=== PATIENT | female | born 1955 | race Caucasian/White ===

== ENCOUNTER 2024-03-21 11:18 | Outpatient (CLI) | payer MEDICARE, OTHER, SELFPAY ==
--- NOTE | 2024-03-21 11:42 | ECG_ITS ---
SEE SCANNED COPY FOR CONFIRMED REPORT MTDD
[2024-03-21 12:25] LABS: Prothrombin Time 13.1 Seconds (11.1-14.7)
[2024-03-21 12:26] LABS: Partial Thromboplastin Time 26.1 Seconds (22.3-36.8)
== END 2024-03-21 11:19 | disposition home or self-care (01) ==
PROVIDERS: Visit Provider Urology
DX: E78.00 Pure hypercholesterolemia, unspecified (principal); N20.0 Calculus of kidney; Z01.818 Encounter for other preprocedural examination
CPT/HCPCS: 36415; 85610; 85730; 87086; 87088; 93005

== ENCOUNTER → 2024-03-29 02:01 | Day surgery (SDC) | payer MEDICARE, OTHER, SELFPAY ==
[2024-03-19 10:37] VITALS: BMI 32.1
--- NOTE | 2024-03-19 10:49 | PC.NURSE ---
PRE-OP INSTRUCTIONS, PLEASE READ CAREFULLY Report to the Outpatient Waiting Room, entrance under the green pavilion located off [facility], at time _0730_ on date _03/29/24_. Planned Procedure Time: _0930_. Time changes happen often and if your time is changed the preop area will call you the afternoon before. - You and your visitor will be asked to self-screen and do not enter if you have any COVID symptoms. - A mask is optional within the hospital at this time. Patients may have clear liquids (water, carbonated beverages, clear teas, apple juice) until 3 hours prior to surgery (0630 AM) with a maximum of 20 ounces. - No food from midnight until time of surgery Take the following medications with a SIP of water the morning of surgery: _BACLOFEN, DALFAMPRIDINE, LEVOTHYROXINE_ DO NOT STOP ANY OF YOUR OTHER PRESCRIPTION MEDICATIONS PRIOR TO SURGERY ?EXCEPT THE FOLLOWING Medications to discontinue - _PT STATES STOPPING ASPIRIN 03/16/24 AND GOING TO STOP VITAMINS/SUPPLEMENTS ON _ Please no make-up, nail serbian, hairspray, perfume, deodorant, or body powder the day of surgery. No jewelry (including any body piercings) or valuables the day of surgery, leave them at home. Please take a shower or bath the night before, or the morning of, surgery with an antibacterial soap. Wear comfortable, loose fitting clothing. - Jewelry must be removed prior to entering the operating room. Rings and piercings that are not removed may be cut off. - The hospital will not accept responsibility for valuables. - Please leave all valuables, including medications, at home the day of surgery. If you are going home after surgery, a licensed transporter driver must drive you home. - NO public transportation without another adult if you receive anesthesia. - We recommend that an adult stay with you for 24 hours following discharge. - We also recommend that you do not drive, make important decision, drink alcoholic beverages, or take any drugs that were not prescribed by your health care provider for at least 24 hours after your discharge time. For Pediatric surgeries, we recommend two adults accompany the child home. Follow any additional instructions given to you from your surgeon. If you or anyone in your household have experienced Covid symptoms in the past week, please notify your surgeon or the nurse liaison at the phone number below for possible testing. Telephone instructions given to _PATIENT_and asked if any additional questions and then verbalized understanding. Patient advised to call surgeon office or pre surgery nurse liaison [phone] if any additional questions.
--- NOTE | 2024-03-28 07:36 | PM.HPGS ---
History of Present Illness History of Present Illness Consent: Risks, benefits, and alternatives have been discussed and questions answered. Patient agrees to proceed with procedure. Chief complaint: Right Renal Stone Narrative: Evette Cronin is a 68 year old female without known history of urolithiasis who was undergoing evaluation for recurrent urinary tract infection when a CT scan at [facility] demonstrated a 1.5 cm right renal pelvic stone. On KUB this is lightly calcified. After discussion of options she has elected for cystoscopy with right ureteral stent placement with right ESWL. She is aware the risk including, but not limited to, adverse cardiopulmonary events, hematuria, perinephric hematoma and need for additional procedures. Review of Systems Cardiovascular: Cardiovascular: Denies chest pain, Denies lightheadedness, Denies palpitations and Denies dyspnea Respiratory: Respiratory: Denies dyspnea Gastrointestinal: Gastrointestinal: Denies diarrhea, Denies nausea and Denies vomiting Genitourinary: Genitourinary: Denies hematuria and Denies dysuria Endocrine: Endocrine: Denies palpitations PMFSH Social History Social History Smoking status: Former smoker Tobacco type: cigarettes Second hand tobacco smoke exposure: No Smoking end date: 11/27/84 Additional smoking assessment comments: STATES SMOKED ON/OFF FOR 15 YRS Alcohol intake: never Substance use: never Substance use type: does not use Living arrangements: with family Additional living arrangements comments: PT SON & FAMILY LIVES WITH PT Spiritual care concerns: No Meds Home Medications and Allergies Home Medications Medication Instructions Recorded Confirmed Type aripiprazole 10 mg tablet 10 mg HS 03/19/24 03/19/24 History aspirin 81 mg tablet,delayed 81 mg PO DAILY 03/19/24 03/19/24 History release baclofen 10 mg tablet 10 mg QID 03/19/24 03/19/24 History calcium carb-ergocalciferol (vit 2 tablet PO DAILY 03/19/24 03/19/24 History D2) 600 mg calcium-200 unit tablet cholecalciferol (vitamin D3) 25 25 mcg PO TID 03/19/24 03/19/24 History mcg (1,000 unit) tablet citalopram 40 mg tablet 40 mg HS 03/19/24 03/19/24 History cranberry 500 mg capsule 500 mg PO DAILY 03/19/24 03/19/24 History dalfampridine 10 mg 10 mg PO QAM 03/19/24 03/19/24 History tablet,extended release,12 hr gabapentin 300 mg capsule 600 mg HS 03/19/24 03/19/24 History levothyroxine 100 mcg tablet 100 mcg QAM 03/19/24 03/19/24 History multivitamin 1 tablet DAILY 03/19/24 03/19/24 History omega 0-dta-uir-fish oil 1,000 mg 3 cap PO DAILY 03/19/24 03/19/24 History (120 mg-180 mg) capsule (Fish Oil) omeprazole 40 mg capsule,delayed 40 mg DAILY 03/19/24 03/19/24 History release rosuvastatin 10 mg tablet 10 mg QAM 03/19/24 03/19/24 History Allergies Allergy/AdvReac Type Severity Reaction Status Date / Time No Known Allergies Allergy Verified 03/19/24 10:26 Exam Const: General: no acute distress Resp: Effort & Inspection: normal respiratory effort GI: Inspection: non-distended GI Palp: No abdominal tenderness and No Guarding due to palpation present (GI) Auscultation: normal bowel sounds Assessment and Plan Assessment and plan (1) Right renal stone: Code(s): N20.0 - Calculus of kidney Status: Acute Assessment and Plan: cystoscopy, right ureteral stent placement, right ESWL
--- NOTE | ~2024-03-29 | XR_ITS ---
Supine and upright views of the abdomen Clinical history: Lithotripsy Findings: Bowel gas pattern is nonspecific. No evidence for obstruction or free air. There is a proba ble 2.0 x 0.9 cm stone near the right renal pelvis region. 1.2 cm rounded calcification in the left u pper quadrant is suggestive of calcified splenic artery aneurysm. Osseous structures are intact. Impression: 2.0 x 0.9 cm right renal pelvis stone. Suspected 1.2 cm calcified splenic artery aneurysm. Reviewed, dictated and finalized at location M. Impression: 2.0 x 0.9 cm right renal pelvis stone. Suspected 1.2 cm calcified splenic artery aneurysm.
--- NOTE | 2024-03-29 06:18 | WPDHPUPDATE1 ---
History and Physical Update Update Date/Time: 03/29/24 06:18 History and Physical has been reviewed, including an updated exam of the patient. There are NO changes in the patient's condition. Risks, benefits, and alternatives have been discussed and questions answered. Patient agrees to proceed with procedure.
[2024-03-29] MEDS: LACTATED RINGERS 1,000 ML 30 ML IV CONT (08:00)
[2024-03-29 08:08] VITALS: BP 115/49; PULSE 67; RESP 18; TEMP 36.7; O2SAT 100
[2024-03-29] MEDS: ceFAZolin 2 GM/D5W 50 ML 2 GM/50 ML BAG IVPB (09:26)
--- NOTE | 2024-03-29 09:41 | WPDANESEPPF ---
Anes - Initial Pre Proc Eval Procedure: Operation Date: 03/29/24 09:30 Proposed Procedures p Right Extracorporeal Shock Wave Lithotripsy - Juanjose Grubbs MD s Cystoscopy with Right Stent Placement - Juanjose Grubbs MD Date/Time: 03/29/24 09:41 Surgeon: Juanjose Grubbs MD Pre Op Diagnosis: Right Renal Stone Patient Data Age: 68 Gender: F Height: 1.63 m Weight: 84.2 kg Last Vital Signs Temp 36.7 C 03/29/24 08:08 Pulse 67 03/29/24 08:08 Resp 18 03/29/24 08:08 BP 115/49 L 03/29/24 08:08 Pulse Ox 100 03/29/24 08:08 O2 Del Method Room Air 03/29/24 08:08 Allergies Allergy/AdvReac Type Severity Reaction Status Date / Time No Known Allergies Allergy Verified 03/29/24 08:03 Home Medications Medication Instructions Recorded Confirmed Type aripiprazole 10 mg tablet 10 mg HS 03/19/24 03/29/24 History aspirin 81 mg tablet,delayed 81 mg PO DAILY 03/19/24 03/29/24 History release baclofen 10 mg tablet 10 mg QID 03/19/24 03/29/24 History calcium carb-ergocalciferol (vit 2 tablet PO DAILY 03/19/24 03/29/24 History D2) 600 mg calcium-200 unit tablet cholecalciferol (vitamin D3) 25 25 mcg PO TID 03/19/24 03/29/24 History mcg (1,000 unit) tablet citalopram 40 mg tablet 40 mg HS 03/19/24 03/29/24 History cranberry 500 mg capsule 500 mg PO DAILY 03/19/24 03/29/24 History dalfampridine 10 mg 10 mg PO QAM 03/19/24 03/29/24 History tablet,extended release,12 hr gabapentin 300 mg capsule 600 mg HS 03/19/24 03/29/24 History levothyroxine 100 mcg tablet 100 mcg QAM 03/19/24 03/29/24 History multivitamin 1 tablet DAILY 03/19/24 03/29/24 History omega 9-cxm-fbp-fish oil 1,000 mg 3 cap PO DAILY 03/19/24 03/29/24 History (120 mg-180 mg) capsule (Fish Oil) omeprazole 40 mg capsule,delayed 40 mg DAILY 03/19/24 03/29/24 History release rosuvastatin 10 mg tablet 10 mg QAM 03/19/24 03/29/24 History Patient hx anesthesia problems: none Family hx anesthesia problems: none Results Review: All pre-operative results and documents have been reviewed as part of the pre-operative evaluation. PMFSH Past Medical History Medical History (Updated 03/29/24 @ 09:41 by Aydin Dickens MD) Multiple sclerosis Obesity Social History Social History Smoking status: Former smoker Tobacco type: cigarettes Second hand tobacco smoke exposure: No Smoking end date: 11/27/84 Additional smoking assessment comments: STATES SMOKED ON/OFF FOR 15 YRS Alcohol intake: never Substance use: never Substance use type: does not use Living arrangements: with family Additional living arrangements comments: PT SON & FAMILY LIVES WITH PT Spiritual care concerns: No Anes - Eval Final PreProcedure Day of Procedure 03/29/24 09:41 Patient weight: obese Heart: regular rate and rhythm Lungs: clear to auscultation Airway: Mallampati scale class II Neurological: alert and oriented Last oral intake: >/= 8 hours ASA classification: III Emergent: no Anesthetic plan: proceed Anesthesia type and monitoring: general LMA and standard monitoring Results Review: All pre-operative results and documents have been reviewed as part of the pre-operative evaluation. Informed Consent: The patient's anesthetic plan and its attendant risks and benefits were discussed with the patient/family/POA. Questions were solicited and answers provided to the satisfaction of the patient/family/POA.
--- NOTE | 2024-03-29 09:59 | P.OP_ITS ---
Procedure Note - Detailed Date of Procedure 03/29/24 Pre-op Diagnosis Right Renal Stone Post-op Diagnosis Same Procedure Performed Cystoscopy, right ureteral stent placement, right ESWL Surgeon Juanjose Grubbs MD Anesthesia General Description of Procedure The patient was brought to the operative suite where she was placed in the frog- legged position on the Dornier lithotripter table. Flexible cystoscopy was undertaken with a 16F flexible cystoscopy. Her urethra and bladder neck were endoscopically normal. The bladder mucosa was normal and there was a single, orthotopic ureteral orifice bilaterally. A 0.035 glidewire was advanced into the right renal pelvis under fluoroscopy. A 4.8F J-J ureteral stent was positioned with the proximal coil in the renal pelvis and the distal coil in the bladder. The patient was then repositioned in the supine position and the focal point of the lithotriptor was placed at a 15mm left proximal-ureteral calculus. A total of 3000 shocks were delivered at a power setting of 5. There appeared to be good fragmentation of the stone. The patient tolerated the procedure well and was taken to the recovery room in good condition. Drains Yes Packing No Pathology None sent Complications No immediate complications
[2024-03-29 10:28] VITALS: BP 150/82; PULSE 76; RESP 14; TEMP 36.2; O2SAT 100
[2024-03-29 10:40] VITALS: BP 143/67; PULSE 79; RESP 19; O2SAT 100
[2024-03-29 10:55] VITALS: BP 132/68; PULSE 76; RESP 16; O2SAT 100
[2024-03-29 11:10] VITALS: BP 136/68; PULSE 70; RESP 16
[2024-03-29 11:40] VITALS: BP 143/72; PULSE 74; RESP 16
== END | disposition home or self-care (01) ==
PROVIDERS: Visit Provider Urology
PROC: (CPT 50590; principal; 2024-03-29 09:30)
PROC: (CPT 52352; 2024-03-29 09:30)
DX: N20.1 Calculus of ureter (principal); G35 Multiple sclerosis; E66.9 Obesity, unspecified; Z68.31 Body mass index [BMI] 31.0-31.9, adult; Z79.82 Long term (current) use of aspirin; Z87.891 Personal history of nicotine dependence
CPT/HCPCS: 52332; 50590; 36415; 74018; 85610; 85730; 87086; 93005; C1769; C2617; J0690; J1100; J2250; J2405; J2704; J3010; J7120

== ENCOUNTER 2024-04-03 03:06 | Inpatient (IN) | payer MEDICARE, OTHER, SELFPAY ==
[2024-04-03] VITALS (7 sets, daily range): BP systolic 113–128; BP diastolic 41–70; PULSE 84–100; RESP 16–27; TEMP 36.6–37.1; O2SAT 92–97; BMI 31.8
--- NOTE | ~2024-04-03 | XR_ITS ---
Supine and upright views of the abdomen Clinical history: Stent evaluation Findings: Bowel gas pattern is nonspecific. No evidence for obstruction or free air. Right ureteral s tent in satisfactory position. No abnormal mass lesion or calcification is seen. Osseous structures a re intact. Impression: Right ureteral stent in satisfactory position. No definite stone identified. Reviewed, dictated and finalized at [facility]. Impression: Right ureteral stent in satisfactory position. No definite stone identified.
--- NOTE | ~2024-04-03 | US_ITS ---
EXAMINATION: US venous doppler [facility] DATE: 04/05/2024 08:44 INDICATION: Lower limb edema. TECHNIQUE: Grayscale ultrasound images without and with compression and Doppler ultrasound images of the bilateral lower extremity veins were obtained. COMPARISON: None. FINDINGS: The visualized portions of right common femoral vein, profunda (deep) femoral vein, femoral vein, pop liteal vein, peroneal veins, posterior tibial veins, and greater saphenous vein outflow are patent. The visualized portions of left common femoral vein, profunda femoral vein, femoral vein, popliteal v ein, peroneal veins, posterior tibial veins, and greater saphenous vein outflow are patent. IMPRESSION: 1. No deep venous thrombosis. Reviewed, dictated and finalized at location A.
--- NOTE | 2024-04-03 03:25 | ECG_ITS ---
SEE SCANNED COPY FOR CONFIRMED REPORT MTDD
[2024-04-03 04:15] LABS: Basophils Percent Auto 0.1 % (0.2-1.2); Eosinophils Percent Auto 0.2 % (0-4.4); Hematocrit 34.7 % (37.0-47.0); Hemoglobin 11.7 g/dL (12.0-15.0); Immature Granulocyte Absolute 0.03 K/mm3 (0.00-0.031); Immature Granulocyte Percent A 0.3 % (0-0.5); Lymphocytes Absolute Auto 0.96 K/mm3 (0.9-3.2); Lymphocytes Percent Auto 9.6 % (18.3-44.2); Mean Corpuscular HGB Conc 33.7 g/dl (32-36); Mean Corpuscular Hemoglobin 28.9 pg (26-34); Mean Corpuscular Volume 85.7 fl (80-100); Mean Platelet Volume 9.6 fl (7.4-10.4); Monocytes Absolute Auto 0.8 K/mm3 (0.1-0.6); Monocytes Percent Auto 8.1 % (2.6-8.5); Neutrophils Absolute Auto 8.1 K/mm3 (1.3-6.7); Neutrophils Percent Auto 81.7 % (45.5-73.1); Platelet Count Result 130 k/mm3 (150-375); Red Blood Count 4.05 M/mm3 (4.2-5.4)
[2024-04-03 04:19] LABS: Appearance Urine Cloudy (Clear); Bacteria Urine None Seen /hpf; Bilirubin Urine Negative (Negative); Blood Urine 2+ (Negative); Color Urine Yellow (Yellow); Glucose Urine UA Negative (Negative); Ketones Urine 2+ mg/dL (Negative); Leukocyte Esterase Ur 3+ LEU/UL (Negative); Nitrate Urine Negative (Negative); Non Pathogenic Casts 0-2; Protein Urine 1+ mg/dL (Negative); RBC Urine 51-100 /hpf (0-2); Specific Grav Ur 1.027 (1.001-1.035); Squamous Epithelial Cell Urine None Seen /hpf (Few); WBC Urine >100 /hpf (0-3)
[2024-04-03 04:21] LABS: Add Urine Microscopic? YES
[2024-04-03 04:26] LABS: Alanine Aminotransferase 14 U/L (6-35); Albumin Level 3.9 g/dL (3.5-5.1); Alkaline Phosphatase 58 U/L (38-126); Anion Gap 9 mmol/L (4-12); Aspartate Amino Transferase 18 U/L (14-36); Bilirubin,Total 1.4 mg/dL (0.2-1.3); Blood Urea Nitrogen 13 mg/dL (7-17); Calcium 8.4 mg/dL (8.4-10.2); Carbon Dioxide 22 mmol/L (22-30); Chloride 111 mmol/L (98-107); Estimated CRCL calculation 73 ml/min; Estimated Glomerular Filt Rate > 60; Glucose 116 mg/dL (65-110); Lactic Acid Reflex 0.8 mmol/L (0.7-2.0); Potassium 3.4 mmol/L (3.4-5.0); Sodium 142 mmol/L (137-145)
--- NOTE | 2024-04-03 04:38 | ED.GENADULT ---
HPI - General Adult General Chief complaint: Urogenital-Female Stated complaint: INFECTED URETRAL STENT/FROM [facility] ED Time Seen by Provider: 04/03/24 03:10 History of Present Illness HPI narrative: This is a 68-year-old female transferred from [facility] for possible infected stent. Patient been having fevers chills and right flank pain. Patient was Given fluid resuscitated and started on ceftriaxone. She was then transferred to our hospital for further management. At this time patient says she feels much better. She is resting comfortably in bed with no complaints. Related Data Home Medications Medication Instructions Recorded Confirmed aripiprazole 10 mg tablet 10 mg HS 03/19/24 03/29/24 aspirin 81 mg tablet,delayed 81 mg PO DAILY 03/19/24 03/29/24 release baclofen 10 mg tablet 10 mg QID 03/19/24 03/29/24 calcium carb-ergocalciferol (vit 2 tablet PO DAILY 03/19/24 03/29/24 D2) 600 mg calcium-200 unit tablet cholecalciferol (vitamin D3) 25 25 mcg PO TID 03/19/24 03/29/24 mcg (1,000 unit) tablet citalopram 40 mg tablet 40 mg HS 03/19/24 03/29/24 cranberry 500 mg capsule 500 mg PO DAILY 03/19/24 03/29/24 dalfampridine 10 mg 10 mg PO QAM 03/19/24 03/29/24 tablet,extended release,12 hr gabapentin 300 mg capsule 600 mg HS 03/19/24 03/29/24 levothyroxine 100 mcg tablet 100 mcg QAM 03/19/24 03/29/24 multivitamin 1 tablet DAILY 03/19/24 03/29/24 omega 4-zav-pgf-fish oil 1,000 mg 3 cap PO DAILY 03/19/24 03/29/24 (120 mg-180 mg) capsule (Fish Oil) omeprazole 40 mg capsule,delayed 40 mg DAILY 03/19/24 03/29/24 release rosuvastatin 10 mg tablet 10 mg QAM 03/19/24 03/29/24 Allergies Allergy/AdvReac Type Severity Reaction Status Date / Time No Known Allergies Allergy Verified 04/03/24 03:21 [facility] Past Medical History Medical History Multiple sclerosis Obesity Social History Social History Smoking status: Former smoker Tobacco type: cigarettes Second hand tobacco smoke exposure: No Smoking end date: 11/27/84 Additional smoking assessment comments: STATES SMOKED ON/OFF FOR 15 YRS Alcohol intake: never Substance use: never Substance use type: does not use Living arrangements: with family Additional living arrangements comments: PT SON & FAMILY LIVES WITH PT Spiritual care concerns: No Exam Narrative: APPEARANCE: No apparent distress. Head: atraumatic. EYES: EOMI, NOSE: Atraumatic NECK: Trachea midline RESPIRATORY: No increased rate of breathing CTAB CARDIOVASCULAR: RRR, Mild peripheral edema ABDOMINAL: Non-distended, soft nontender, right CVA tenderness MUSCULOSKELETAl: No obvious deformities NEURO: Alert. Moving 4/4 extremities SKIN:: Warm, dry. Normal color PSYCHIATRIC: Normal affect Course Vital Signs Vital signs: Vital Signs Temperature 98.7 F 04/03/24 03:07 Pulse Rate 100 04/03/24 03:07 Respiratory Rate 27 H 04/03/24 03:07 Blood Pressure 113/53 L 04/03/24 03:07 Pulse Oximetry 92 04/03/24 03:07 Oxygen Delivery Room Air 04/03/24 03:07 Temperature 98.7 F 04/03/24 03:19 Pulse Rate 94 04/03/24 03:19 Respiratory Rate 18 04/03/24 03:19 Blood Pressure 126/70 04/03/24 03:19 Pulse Oximetry 95 04/03/24 03:19 Oxygen Delivery Room Air 04/03/24 03:07 Medical Decision Making [facility] Narrative Medical decision making narrative: -Course: 68-year-old female transferred to our hospital for urinary tract infection s/p stent placement. Patient is stable in the ED. Patient will be admitted to the floor for further management. Vital Signs Vital Signs: Vital Signs Temperature 98.7 F 04/03/24 03:07 Pulse Rate 100 04/03/24 03:07 Respiratory Rate 27 H 04/03/24 03:07 Blood Pressure 113/53 L 04/03/24 03:07 Pulse Oximetry 92 04/03/24 03:07 Oxygen Delivery Room Air 04/03/24 03:07
--- NOTE | 2024-04-03 06:11 | ADMGEN ---
This patient, Evette Cronin, was admitted to Medical Room 347-01. Patient/family oriented to hospital policies and general routines including ID bracelet, bed and alarms, visiting hours, pain management, procedures, bathroom and other care routines, personal items, smoking policy, room service/diet, and visiting hours. Information on how to activate the Rapid Response Team has been discussed. Patient/Family are encouraged to report perceived risks to care and to ask questions if they do not understand what they are told or what they should do.
--- NOTE | 2024-04-03 08:20 | WPDURCON ---
Assessment and Plan Assessment and plan (1) Sepsis: Code(s): A41.9 - Sepsis, unspecified organism Status: Acute Assessment and Plan: Secondary to UTI/pyelonephritis. Blood and urine cultures pending. Continue empiric IV antibiotics. Being managed per primary team (2) Acute pyelonephritis: Code(s): N10 - Acute pyelonephritis Status: Acute Assessment and Plan: CT at outside facility showed mild to moderate right perinephric stranding consistent with pyelonephritis. UA is grossly abnormal. Urine cultures pending. As above, continue empiric IV antibiotics while awaiting cultures and tailor accordingly (3) S/P ureteral stent placement: Code(s): Z96.0 - Presence of urogenital implants Status: Acute Assessment and Plan: Underwent right ureteral stent placement and ESWL on 03/29/2024. Tolerated procedure well. Right ureteral stent is in expected position on review of CT and KUB. Continue with plans for outpatient stent removal as scheduled (4) Right renal stone: Code(s): N20.0 - Calculus of kidney Status: Acute Assessment and Plan: Several remaining nonobstructing right renal stones, will continue to observe Urology Consult Note HPI Date Seen: 04/03/24 Requesting Physician: Jacqueline Herrera DO Primary Care Provider: Grzegorz Akbar Consult Narrative Narrative: Evette Cronin is a 68 year old female with history of MS and recurrent UTIs who recently underwent right ureteral stent placement and ESWL on 03/29/24 . She tolerated the procedure well. Unfortunately, yesterday she began to feel poorly with complaints of headache, more difficulty with mobility,and fever. She noted very mild dysuria and faint light pink hematuria since her procedure. She presented to [facility] ER on 04/02/24 with complaints of fever (noted to be 102.3 on arrival). Records from outside hospital reviewed. UA with leukocytes and blood, creatinine 0.[address] of abdomen/pelvis with contrast was completed which demonstrates right ureteral stent in expected position, mild right pelviectasis, solf-ij-sdmgcser perinephric fat stranding, nonobstructing right renal stones, and unremarkable bladder. She was given a dose of IV antibiotics and fluids. As there was no urology services at that facility, decision made to transfer to [facility] for urologic consultation. Since arrival, she has remained afebrile, her vital signs are stable. WBC is 10.0, creatinine 0.7. KUB completed at this facility which showed stent in expected position. UA was again abnormal and urine culture is pending at this time as are blood cultures. She does endorse suprapubic pressure and discomfort as well as bladder spasms. Endorses subjective fevers and chills. Denies nausea or vomiting. Feels that dysuria is improving. She does complain of constipation. She continues to feel very weak. 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
--- NOTE | 2024-04-03 09:25 | PM.IMHP ---
H&P: HPI History of Present Illness Date/Time: 04/03/24 09:25 Chief Complaint: Weakness with Fever Narrative: 68yo female with MS, RAJINDER noncompliant with treatment, frequent UTIs and kidney stones with recent ESWL and stent placement here for weakness and fevers. Patient was having frequent UTIs. During evaluation, she was found to have right kidney stone. She was evaluated by Urology and underwent ESWL with right ureteral stent placement on 03/29/2024. She tolerated the procedure well. She has not passed any stones or gravel with voiding that she is aware of since the procedure. She noted hematuria after the procedure but that resolved. She was feeling well until 04/01/2024 when she felt weak. She had pink hematuria noted. She is developing dysuria. Over the next 24 hours, she was having decreasing oral intake with decreased urine output. No abdominal pain but was having right-sided lower back pain. No diarrhea but does have chronic constipation. No chest pain, palpitations, shortness of breath or cough. No melena or hematochezia. She was having headache and some mild blurry vision and comes and goes. She was feeling feverish. She has MS for the past 13 years. She normally walks with a walker and braces. Patient was able to walk to her recliner but was unable to get out of the recliner due to weakness so EMS was contacted. Patient was brought to an outside emergency room. She was febrile with a temperature 102.3?. She was tachycardic. Her white count was normal. Platelet count 149K. BUN and creatinine were normal. Chest x-ray was clear. UA was consistent with UTI. EKG showed sinus tachycardia (124) and nonspecific ST-T wave changes. CT of the abdomen pelvis showed a right-sided ureteral stent in place with mild caliectasis on the right. There is mild-moderate right perinephric fat stranding noted as well. She did have lymphadenopathy but this is chronic and stable. Also noted was splenomegaly. She had nonobstructing right renal calculi noted. Urine and blood cultures were collected. She was given Zofran, IV fluids, Tylenol and 2 g of Rocephin. She was transferred to our facility for further management. In the emergency room here, patient was hemodynamically stable. Heart rate was normal. She is afebrile. Lactic acid was normal. White count was normal. Platelet count was low 130 K. renal function remained normal. Urinalysis was consistent with UTI. Urine culture collected. She was admitted for further care. 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 No alcohol or drug use. Lives at home with son (Reinaldo), dtr-in-law and GDtr. They have dogs and cats. Full code She nominates her son Eran to be the individual would make medical decisions for her if she is unable Smoking status: Former smoker Tobacco type: cigarettes Second hand tobacco smoke exposure: No
[2024-04-03] MEDS: LEVOTHYROXINE SODIUM 100 MCG TABLET PO (11:57)
[2024-04-03] MEDS: ASPIRIN 81 MG ENTERIC TABLET PO (11:57)
[2024-04-03] MEDS: BACLOFEN 10 MG TABLET PO ×3 (11:57→20:55)
[2024-04-03] MEDS: PANTOPRAZOLE 40 MG TABLET PO (11:57)
[2024-04-03] MEDS: CHOLECALCIFEROL 1,000 UNITS TABLET 1000 UNITS PO ×2 (11:58→17:19)
[2024-04-03] MEDS: IPRATROPIUM NASAL SPRAY 0.03% 15 ML BOTTLE 2 SPRAY NASAL (17:19)
[2024-04-03] MEDS: cefTRIAXone 2 GM/NS 100 ML 2 GM/100 ML BAG IVPB (17:19)
[2024-04-03] MEDS: ARIPiprazole 10 MG TABLET PO (20:54)
[2024-04-03] MEDS: CITALOPRAM HYDROBROMIDE 20 MG TABLET 40 MG PO (20:55)
[2024-04-03] MEDS: GABAPENTIN 300 MG CAPSULE 600 MG PO (20:55)
[2024-04-04] MEDS: LEVOTHYROXINE SODIUM 100 MCG TABLET PO (05:33)
[2024-04-04 05:34] VITALS: BP 142/62; PULSE 88; RESP 18; TEMP 36.6; O2SAT 97
[2024-04-04 06:23] LABS: Basophils Percent Auto 0.3 % (0.2-1.2); Eosinophils Absolute Auto 0.1 K/mm3 (0-0.3); Eosinophils Percent Auto 1.2 % (0-4.4); Hematocrit 34.4 % (37.0-47.0); Hemoglobin 11.8 g/dL (12.0-15.0); Immature Granulocyte Absolute 0.04 K/mm3 (0.00-0.031); Immature Granulocyte Percent A 0.5 % (0-0.5); Lymphocytes Absolute Auto 1.16 K/mm3 (0.9-3.2); Lymphocytes Percent Auto 15.5 % (18.3-44.2); Mean Corpuscular HGB Conc 34.3 g/dl (32-36); Mean Corpuscular Volume 84.5 fl (80-100); Mean Platelet Volume 9.6 fl (7.4-10.4); Monocytes Absolute Auto 0.8 K/mm3 (0.1-0.6); Neutrophils Absolute Auto 5.4 K/mm3 (1.3-6.7); Neutrophils Percent Auto 72.5 % (45.5-73.1); Platelet Count Result 131 k/mm3 (150-375); Red Blood Count 4.07 M/mm3 (4.2-5.4); Red Cell Distribution Width 13.6 % (11.5-14.5); White Blood Count 7.5 K/mm3 (4.5-10.0)
[2024-04-04 06:43] LABS: Anion Gap 8 mmol/L (4-12); Blood Urea Nitrogen 10 mg/dL (7-17); Calcium 8.3 mg/dL (8.4-10.2); Carbon Dioxide 25 mmol/L (22-30); Chloride 103 mmol/L (98-107); Estimated CRCL calculation 82 ml/min; Estimated Glomerular Filt Rate > 60; Glucose 103 mg/dL (65-110); Potassium 3.1 mmol/L (3.4-5.0); Sodium 136 mmol/L (137-145)
[2024-04-04] MEDS: PANTOPRAZOLE 40 MG TABLET PO (08:53)
[2024-04-04] MEDS: BACLOFEN 10 MG TABLET PO ×4 (08:53→20:06)
[2024-04-04] MEDS: OMEGA 3 POLYUNSAT FATTY ACIDS 1 GM CAP 3 GM PO (08:53)
[2024-04-04] MEDS: ASPIRIN 81 MG ENTERIC TABLET PO (08:53)
[2024-04-04] MEDS: MULTIVITAMINS THERAPEUTIC TAB (*BKC) 1 TABLET PO (08:53)
[2024-04-04] MEDS: CALCIUM/VITAMIN D 500 MG/5 MCG (200 I.U.) TABLET 1000 MG PO (08:53)
[2024-04-04] MEDS: CHOLECALCIFEROL 1,000 UNITS TABLET 1000 UNITS PO ×3 (08:54→17:34)
[2024-04-04] MEDS: IPRATROPIUM NASAL SPRAY 0.03% 15 ML BOTTLE 2 SPRAY NASAL (08:54)
[2024-04-04] MEDS: POTASSIUM CHLORIDE 20 MEQ PACKET (FOR LIQUID) 40 MEQ PO (08:55)
--- NOTE | 2024-04-04 09:48 | WPDUROPN2 ---
Progress Note: A&P Assessment and Plan (1) Sepsis: Code(s): A41.9 - Sepsis, unspecified organism Status: Acute Assessment and Plan: Secondary to UTI/pyelonephritis. Continue empiric IV antibiotics. Review of cultures from [facility] - blood cultures no growth to date; preliminary urine culture with growth of E. coli, sensitive to ceftriaxone. Repeat urine culture at this facility is pending. (2) Acute pyelonephritis: Code(s): N10 - Acute pyelonephritis Status: Acute Assessment and Plan: CT at outside facility showed mild to moderate right perinephric stranding consistent with pyelonephritis. UA is grossly abnormal. Urine culture with growth of E. coli. Continue IV ceftriaxone (3) S/P ureteral stent placement: Code(s): Z96.0 - Presence of urogenital implants Status: Acute Assessment and Plan: Underwent right ureteral stent placement and ESWL on 03/29/2024. Tolerated procedure well. Right ureteral stent is in expected position on review of CT and KUB. Continue with plans for outpatient stent removal as scheduled (4) Right renal stone: Code(s): N20.0 - Calculus of kidney Status: Acute Assessment and Plan: Several remaining nonobstructing right renal stones, will continue to observe Subjective Subjective Date/Time Seen: 04/04/24 09:48 Interval history: Evette is feeling improved today. She does complain of some mild bladder spasms. She denies flank pain or back pain. Denies nausea, vomiting, fever, chills. Dysuria is improving. Urine is clear yellow. Her vital signs are stable and she remains afebrile. WBC is within normal limits. Creatinine is 0.6. Review of Systems Review of Systems: All systems reviewed & are unremarkable except as noted in HPI and below Exam Narrative: General: Awake, alert, comfortable, no acute distress HEENT: Normocephalic, atraumatic, sclerae anicteric Respiratory: Normal respiratory effort, no accessory muscle use Abdomen: Nondistended, soft, nontender : Urine in pure wick collecting system is clear yellow Skin: Normal coloration, warm and dry Neurologic: No focal neuro deficits noted Psychiatric: Appropriate mood and affect, judgment and insight intact Objective Data Vital Signs Vital Signs: Vital Signs - 24 hr 04/03/24 14:23 04/03/24 14:00 04/03/24 19:59 Temperature 98.8 F 98 F Pulse Rate 91 84 Respiratory Rate 20 20 Blood Pressure 120/41 L 128/44 L Pulse Oximetry 92 97 Oxygen Delivery Room Air 04/04/24 05:34 Temperature 97.8 F Pulse Rate 88 Respiratory Rate 18 Blood Pressure 142/62 H Pulse Oximetry 97 Oxygen Delivery Intake/Output Intake/Output: Intake & Output 04/01/24 04/02/24 04/03/24 04/04/24 23:59 23:59 23:59 23:59 Intake Total 960 450 Output Total 600 1100 Balance 360 -650 Meds/Results Medications: Active Medications Generic Name Dose Route Start Last Admin Trade Name Freq PRN Reason Stop Dose Admin Aripiprazole 10 mg 04/03/24 21:00 04/03/24 20:54 Aripiprazole 10 Mg Tablet PO 10 mg HS SUZY Administration Aspirin 81 mg 04/03/24 10:10 04/04/24 08:53 Aspirin 81 Mg Enteric Tablet PO 81 mg DAILY SUZY Administration Baclofen 10 mg 04/03/24 13:00 04/04/24 08:53 Baclofen 10 Mg Tablet PO 10 mg QID SUZY Administration Calcium Carbonate 1,000 mg 04/04/24 09:00 04/04/24 08:53 Calcium/Vitamin D 500 Mg/5 Mcg (200 I.U.) Tablet PO 1,000 mg QAM SUZY Administration Citalopram Hydrobromide 40 mg 04/03/24 21:00 04/03/24 20:55 Citalopram Hydrobromide 20 Mg Tablet PO 40 mg HS SUZY Administration Fish Oil 3 gm 04/04/24 09:00 04/04/24 08:53 [place] 3 Polyunsat Fatty Acids 1 Gm Cap PO 3 gm DAILY SUZY Administration Gabapentin 600 mg 04/03/24 21:00 04/03/24 20:55 Gabapentin 300 Mg Capsule PO 600 mg HS SUZY Administration Ceftriaxone Sodium 2 gm in 100 mls @ 200 m
--- NOTE | 2024-04-04 11:43 | PM.IMPN ---
Progress Note: A&P Assessment and Plan (1) Sepsis: Code(s): A41.9 - Sepsis, unspecified organism Status: Acute Assessment and Plan: Patient presents to an outside emergency room with weakness found to have sepsis noted by her tachycardia and fever. Source is urinary with UTI and right-sided pyelonephritis. BCx at OSH NGTD. UCx at OSH growing EColi. UCx here pending. Clinically improved. Normal WBC Continue Rocephin. Follow-up on culture results. (2) Acute pyelonephritis: Code(s): N10 - Acute pyelonephritis Status: Acute Assessment and Plan: As above. Continue IV antibiotics. (3) S/P ureteral stent placement: Code(s): Z96.0 - Presence of urogenital implants Status: Acute Assessment and Plan: Patient was having frequent UTIs. Urine culture from 03/21/2024 was negative. KUB on 03/29/2024 showed a 2 cm right renal pelvic stone. She underwent ESWL and right ureteral stent placement on 03/29/24 which she tolerated well. Urology following (4) Thrombocytopenia: Code(s): D69.6 - Thrombocytopenia, unspecified Status: Acute Assessment and Plan: Platelet count was mildly low at the outside hospital. Imaging did show splenomegaly. Platelet count has dropped to 130 K on repeat labs but stable. Suspect this is probably related to splenic sequestration made worse by her sepsis vs chronic related to her medciations. Continue to monitor platelet count. (5) Multiple sclerosis: Code(s): G35 - Multiple sclerosis Status: Acute Assessment and Plan: Patient with MS that is longstanding. She is on baclofen chronically and takes Ocrevus (ocrelizumab) IV every 6 months with last dose in February. Baclofen resumed PT and OT. Plan DVT prophylaxis -SCDs Code status -full Review and resume home meds Subjective Date/time seen: 04/04/24 11:43 Interval history: 68yo female with MS, RAJINDER noncompliant with treatment, frequent UTIs and kidney stones with recent ESWL and stent placement here for weakness and fevers.?? Slept well. No CP or palpitations. Slight right sided back pain. No fever or chills Exam Narrative: AF 97.8 142/62 88 18 97% ra Gen - NARD Chest - CTA bilaterally, nml RR CV - RRR S1/S2 Abd - Soft, obee, NT Ext - nonpitting pedal edema Psych - Nml mood and affect Skin - Warm and dry Objective Data Vital Signs Vital Signs: Vital Signs - 24 hr 04/03/24 14:23 04/03/24 14:00 04/03/24 19:59 Temperature 98.8 F 98 F Pulse Rate 91 84 Respiratory Rate 20 20 Blood Pressure 120/41 L 128/44 L Pulse Oximetry 92 97 Oxygen Delivery Room Air 04/04/24 05:34 04/04/24 08:00 Temperature 97.8 F Pulse Rate 88 Respiratory Rate 18 Blood Pressure 142/62 H Pulse Oximetry 97 Oxygen Delivery Room Air Intake/Output Intake/Output: Intake & Output 04/01/24 04/02/24 04/03/24 04/04/24 23:59 23:59 23:59 23:59 Intake Total 960 690 Output Total 600 1100 Balance 360 -410 Meds/Results Medications: Active Medications Generic Name Dose Route Start Last Admin Trade Name Andi PRN Reason Stop Dose Admin Aripiprazole 10 mg 04/03/24 21:00 04/03/24 20:54 Aripiprazole 10 Mg Tablet PO 10 mg HS SUZY Administration Aspirin 81 mg 04/03/24 10:10 04/04/24 08:53 Aspirin 81 Mg Enteric Tablet PO 81 mg DAILY SUZY Administration Baclofen 10 mg 04/03/24 13:00 04/04/24 08:53 Baclofen 10 Mg Tablet PO 10 mg QID SUZY Administration Calcium Carbonate 1,000 mg 04/04/24 09:00 04/04/24 08:53 Calcium/Vitamin D 500 Mg/5 Mcg (200 I.U.) Tablet PO 1,000 mg QAM SUZY Administration Citalopram Hydrobromide 40 mg 04/03/24 21:00 04/03/24 20:55 Citalopram Hydrobromide 20 Mg Tablet PO 40 mg HS SUZY Administration Fish Oil 3 gm 04/04/24 09:00 04/04/24 08:53 [place] 3 Polyunsat Fatty Acids 1 Gm Cap PO 3 gm DAILY SUZY Administration Gabapentin 600 mg 05
[2024-04-04] MEDS: ROSUVASTATIN 10 MG TABLET PO (12:48)
[2024-04-04 14:00] VITALS: BP 120/50; PULSE 75; RESP 16; TEMP 37; O2SAT 97
[2024-04-04] MEDS: cefTRIAXone 2 GM/NS 100 ML 2 GM/100 ML BAG IVPB (17:34)
[2024-04-04 19:49] VITALS: BP 134/52; PULSE 84; RESP 16; TEMP 36.8; O2SAT 94
[2024-04-04] MEDS: CITALOPRAM HYDROBROMIDE 20 MG TABLET 40 MG PO (20:06)
[2024-04-04] MEDS: GABAPENTIN 300 MG CAPSULE 600 MG PO (20:06)
[2024-04-04] MEDS: ARIPiprazole 10 MG TABLET PO (20:06)
[2024-04-05 05:15] LABS: Anion Gap 7 mmol/L (4-12); Blood Urea Nitrogen 10 mg/dL (7-17); Calcium 8.8 mg/dL (8.4-10.2); Carbon Dioxide 25 mmol/L (22-30); Chloride 109 mmol/L (98-107); Estimated CRCL calculation 82 ml/min; Estimated Glomerular Filt Rate > 60; Glucose 101 mg/dL (65-110); Potassium 3.6 mmol/L (3.4-5.0); Sodium 141 mmol/L (137-145)
[2024-04-05] MEDS: LEVOTHYROXINE SODIUM 100 MCG TABLET PO (05:43)
[2024-04-05 05:51] VITALS: BP 117/54; PULSE 68; RESP 18; TEMP 36.1; O2SAT 96
--- NOTE | 2024-04-05 08:44 | WPDUROPN2 ---
Progress Note: A&P Assessment and Plan (1) Sepsis: Code(s): A41.9 - Sepsis, unspecified organism Status: Acute Assessment and Plan: Secondary to UTI/pyelonephritis. Review of cultures from [facility] - blood cultures no growth to date; urine culture with growth of E. coli sensitive to ceftriaxone as well as Proteus; susceptibility pending. Repeat urine culture at this facility with <10k coag negative staph which is likely a contaminant. (2) Acute pyelonephritis: Code(s): N10 - Acute pyelonephritis Status: Acute Assessment and Plan: CT at outside facility showed mild to moderate right perinephric stranding consistent with pyelonephritis. UA is grossly abnormal. Urine culture with growth of E. coli. Continue IV ceftriaxone. Okay for discharge on appropriate PO antibiotics pending final urine culture. (3) S/P ureteral stent placement: Code(s): Z96.0 - Presence of urogenital implants Status: Acute Assessment and Plan: Underwent right ureteral stent placement and ESWL on 03/29/2024. Tolerated procedure well. Right ureteral stent is in expected position on review of CT and KUB. Continue with plans for outpatient stent removal as scheduled (4) Right renal stone: Code(s): N20.0 - Calculus of kidney Status: Acute Assessment and Plan: Several remaining nonobstructing right renal stones, will continue to observe Subjective Subjective Date/Time Seen: 04/05/24 08:44 Interval history: She is feeling much better today. Has no complaints. Voiding without difficulty. Denies nausea, vomiting, fever, chills. Tolerating diet. Review of Systems Review of Systems: All systems reviewed & are unremarkable except as noted in HPI and below Exam Narrative: General: Awake, alert, comfortable, no acute distress HEENT: Normocephalic, atraumatic, sclerae anicteric Respiratory: Normal respiratory effort, no accessory muscle use Abdomen: Nondistended, soft, nontender : Urine in pure wick collecting system is clear yellow Skin: Normal coloration, warm and dry Neurologic: No focal neuro deficits noted Psychiatric: Appropriate mood and affect, judgment and insight intact Objective Data Vital Signs Vital Signs: Vital Signs - 24 hr 04/04/24 14:00 04/04/24 19:49 04/05/24 05:51 Temperature 98.6 F 98.2 F 97 F L Pulse Rate 75 84 68 Respiratory Rate 16 16 18 Blood Pressure 120/50 L 134/52 L 117/54 L Pulse Oximetry 97 94 96 Intake/Output Intake/Output: Intake & Output 04/02/24 04/03/24 04/04/24 04/05/24 23:59 23:59 23:59 23:59 Intake Total 960 2270 300 Output Total 600 1800 1200 Balance 360 470 -900 Meds/Results Medications: Active Medications Generic Name Dose Route Start Last Admin Trade Name Andi PRN Reason Stop Dose Admin Aripiprazole 10 mg 04/03/24 21:00 04/04/24 20:06 Aripiprazole 10 Mg Tablet PO 10 mg HS SUZY Administration Aspirin 81 mg 04/03/24 10:10 04/04/24 08:53 Aspirin 81 Mg Enteric Tablet PO 81 mg DAILY SUZY Administration Baclofen 10 mg 04/03/24 13:00 04/04/24 20:06 Baclofen 10 Mg Tablet PO 10 mg QID SUZY Administration Calcium Carbonate 1,000 mg 04/04/24 09:00 04/04/24 08:53 Calcium/Vitamin D 500 Mg/5 Mcg (200 I.U.) Tablet PO 1,000 mg QAM SUZY Administration Citalopram Hydrobromide 40 mg 04/03/24 21:00 04/04/24 20:06 Citalopram Hydrobromide 20 Mg Tablet PO 40 mg HS SUZY Administration Fish Oil 3 gm 04/04/24 09:00 04/04/24 08:53 [place] 3 Polyunsat Fatty Acids 1 Gm Cap PO 3 gm DAILY SUZY Administration Gabapentin 600 mg 04/03/24 21:00 04/04/24 20:06 Gabapentin 300 Mg Capsule PO 600 mg HS SUZY Administration Ceftriaxone Sodium 2 gm in 100 mls @ 200 mls/hr 04/03/24 18:00 04/04/24 18:04 Rocephin 2 Gm/Ns 100 Ml IVPB Infused Q24H SUZY Infusion Ipratropium Pierz 2 spray 04/03/24 17:00 04/04/24 17:38 Ipra
[2024-04-05] MEDS: IPRATROPIUM NASAL SPRAY 0.03% 15 ML BOTTLE 2 SPRAY NASAL (09:09)
[2024-04-05] MEDS: ASPIRIN 81 MG ENTERIC TABLET PO (09:09)
[2024-04-05] MEDS: CALCIUM/VITAMIN D 500 MG/5 MCG (200 I.U.) TABLET 1000 MG PO (09:09)
[2024-04-05] MEDS: PANTOPRAZOLE 40 MG TABLET PO (09:09)
[2024-04-05] MEDS: OMEGA 3 POLYUNSAT FATTY ACIDS 1 GM CAP 3 GM PO (09:09)
[2024-04-05] MEDS: MULTIVITAMINS THERAPEUTIC TAB (*BKC) 1 TABLET PO (09:09)
[2024-04-05] MEDS: ROSUVASTATIN 10 MG TABLET PO (09:09)
[2024-04-05] MEDS: BACLOFEN 10 MG TABLET PO ×4 (09:09→20:50)
[2024-04-05] MEDS: CHOLECALCIFEROL 1,000 UNITS TABLET 1000 UNITS PO ×3 (09:09→17:15)
--- NOTE | 2024-04-05 13:10 | PM.IMPN ---
Progress Note: A&P Assessment and Plan (1) Sepsis: Code(s): A41.9 - Sepsis, unspecified organism Status: Acute Assessment and Plan: Patient presents to an outside emergency room with weakness found to have sepsis noted by her tachycardia and fever. Source is urinary with UTI and right-sided pyelonephritis. BCx at OSH NGTD. UCx at OSH growing EColi sensitive to Rocephin and Proteus sensitivities pending. UCx here growing 10-49K colonies of coag negative staph felt to be a contaminant Clinically improved. Normal WBC Continue Rocephin. Follow-up on culture results. (2) Acute pyelonephritis: Code(s): N10 - Acute pyelonephritis Status: Acute Assessment and Plan: As above. Continue IV antibiotics. (3) S/P ureteral stent placement: Code(s): Z96.0 - Presence of urogenital implants Status: Acute Assessment and Plan: Patient was having frequent UTIs. Urine culture from 03/21/2024 was negative. KUB on 03/29/2024 showed a 2 cm right renal pelvic stone. She underwent ESWL and right ureteral stent placement on 03/29/24 which she tolerated well. Urology following (4) Thrombocytopenia: Code(s): D69.6 - Thrombocytopenia, unspecified Status: Acute Assessment and Plan: Platelet count was mildly low at the outside hospital. Imaging did show splenomegaly. Platelet count has dropped to 130 K on repeat labs but stable. Suspect this is probably related to splenic sequestration made worse by her sepsis vs chronic related to her medciations. Continue to monitor platelet count. (5) Multiple sclerosis: Code(s): G35 - Multiple sclerosis Status: Acute Assessment and Plan: Patient with MS that is longstanding. She is on baclofen chronically and takes Ocrevus (ocrelizumab) IV every 6 months with last dose in February. Baclofen resumed Continue PT and OT. Plan DVT prophylaxis -SCDs Code status -full Disp - she is considering SNF placement. Care coordination made aware. Subjective Date/time seen: 04/05/24 13:10 Interval history: 68yo female with MS, RAJINDER noncompliant with treatment, frequent UTIs and kidney stones with recent ESWL and stent placement here for weakness and fevers.?? Up to the chair today. Slept well. No CP or SOB. Exam Narrative: AF 97.0 117/54 68 18 96% ra Gen - NARD sitting up in chair Chest - CTA bilaterally, nml RR CV - RRR S1/S2 Abd - Soft, obee, NT Ext - braced in place Psych - Nml mood and affect Skin - Warm and dry Objective Data Vital Signs Vital Signs: Vital Signs - 24 hr 04/04/24 14:00 04/04/24 19:49 04/05/24 05:51 Temperature 98.6 F 98.2 F 97 F L Pulse Rate 75 84 68 Respiratory Rate 16 16 18 Blood Pressure 120/50 L 134/52 L 117/54 L Pulse Oximetry 97 94 96 Oxygen Delivery 04/05/24 08:00 Temperature Pulse Rate Respiratory Rate Blood Pressure Pulse Oximetry Oxygen Delivery Room Air Intake/Output Intake/Output: Intake & Output 04/02/24 04/03/24 04/04/24 04/05/24 23:59 23:59 23:59 23:59 Intake Total 960 2270 660 Output Total 600 1800 1200 Balance 360 470 -540 Meds/Results Medications: Active Medications Generic Name Dose Route Start Last Admin Trade Name Massimoq PRN Reason Stop Dose Admin Aripiprazole 10 mg 04/03/24 21:00 04/04/24 20:06 Aripiprazole 10 Mg Tablet PO 10 mg HS SUZY Administration Aspirin 81 mg 04/03/24 10:10 04/05/24 09:09 Aspirin 81 Mg Enteric Tablet PO 81 mg DAILY SUZY Administration Baclofen 10 mg 04/03/24 13:00 04/05/24 12:30 Baclofen 10 Mg Tablet PO 10 mg QID SUZY Administration Calcium Carbonate 1,000 mg 04/04/24 09:00 04/05/24 09:09 Calcium/Vitamin D 500 Mg/5 Mcg (200 I.U.) Tablet PO 1,000 mg QAM SUZY Administration Citalopram Hydrobromide 40 mg 04/03/24 21:00 04/04/24 20:06 Citalopram Hydrobromide 20 Mg Tablet PO 40 mg HS SUZY Administration Fish Oil 3 gm
[2024-04-05 14:00] VITALS: BP 111/51; PULSE 75; RESP 14; TEMP 36.8; O2SAT 98
[2024-04-05] MEDS: cefTRIAXone 2 GM/NS 100 ML 2 GM/100 ML BAG IVPB (17:15)
[2024-04-05 20:00] VITALS: PULSE 75; RESP 14; O2SAT 98
[2024-04-05] MEDS: GABAPENTIN 300 MG CAPSULE 600 MG PO (20:50)
[2024-04-05] MEDS: ARIPiprazole 10 MG TABLET PO (20:50)
[2024-04-05] MEDS: CITALOPRAM HYDROBROMIDE 20 MG TABLET 40 MG PO (20:50)
[2024-04-05 21:56] VITALS: BP 103/79; PULSE 72; RESP 20; TEMP 36.1; O2SAT 100
[2024-04-06] MEDS: LEVOTHYROXINE SODIUM 100 MCG TABLET PO (05:36)
[2024-04-06 06:00] VITALS: BP 120/52; PULSE 67; RESP 16; TEMP 36.3; O2SAT 95
[2024-04-06] MEDS: CALCIUM/VITAMIN D 500 MG/5 MCG (200 I.U.) TABLET 1000 MG PO (09:24)
[2024-04-06] MEDS: OMEGA 3 POLYUNSAT FATTY ACIDS 1 GM CAP 3 GM PO (09:24)
[2024-04-06] MEDS: ROSUVASTATIN 10 MG TABLET PO (09:25)
[2024-04-06] MEDS: MULTIVITAMINS THERAPEUTIC TAB (*BKC) 1 TABLET PO (09:25)
[2024-04-06] MEDS: BACLOFEN 10 MG TABLET PO ×4 (09:25→20:40)
[2024-04-06] MEDS: IPRATROPIUM NASAL SPRAY 0.03% 15 ML BOTTLE 2 SPRAY NASAL (09:25)
[2024-04-06] MEDS: ASPIRIN 81 MG ENTERIC TABLET PO (09:25)
[2024-04-06] MEDS: PANTOPRAZOLE 40 MG TABLET PO (09:25)
[2024-04-06] MEDS: CHOLECALCIFEROL 1,000 UNITS TABLET 1000 UNITS PO ×3 (09:25→17:07)
--- NOTE | 2024-04-06 10:56 | PC.NURSE ---
call to [facility] for culture results per Dr Cai request, given [facility] main lab number to further track down info, [facility] then able to fax report to floor
--- NOTE | 2024-04-06 13:04 | PM.IMPN ---
Progress Note: A&P Assessment and Plan (1) Sepsis: Code(s): A41.9 - Sepsis, unspecified organism Status: Acute Assessment and Plan: Patient presents to an outside emergency room with weakness found to have sepsis noted by her tachycardia and fever. Source is urinary with UTI and right-sided pyelonephritis. Rocephin started on the evening of 5/7 OSH BCx NGTD. OSH UCx growinig >100K colonies of EColi and proteus that are both sensitive to Rocephin UCx here growing 10-49K colonies of coag negative staph felt to be a contaminant Clinically improved. Normal WBC Continue Rocephin. Placement being arranged. (2) Acute pyelonephritis: Code(s): N10 - Acute pyelonephritis Status: Acute Assessment and Plan: As above. Continue antibiotics. (3) S/P ureteral stent placement: Code(s): Z96.0 - Presence of urogenital implants Status: Acute Assessment and Plan: Patient was having frequent UTIs. Urine culture from 03/21/2024 was negative. KUB on 03/29/2024 showed a 2 cm right renal pelvic stone. She underwent ESWL and right ureteral stent placement on 03/29/24 which she tolerated well. Urology following (4) Thrombocytopenia: Code(s): D69.6 - Thrombocytopenia, unspecified Status: Acute Assessment and Plan: Platelet count was mildly low at the outside hospital. Imaging did show splenomegaly. Platelet count has dropped to 130 K on repeat labs but stable. Suspect this is probably related to splenic sequestration made worse by her sepsis vs chronic related to her medciations. Continue to monitor platelet count. (5) Multiple sclerosis: Code(s): G35 - Multiple sclerosis Status: Acute Assessment and Plan: Patient with MS that is longstanding. She is on baclofen chronically and takes Ocrevus (ocrelizumab) IV every 6 months with last dose in February. Baclofen resumed Continue PT and OT. Placement being arranged Plan DVT prophylaxis -SCDs Code status -full Disp - she is agreeable for SNF placement. Care coordination made aware. Subjective Date/time seen: 04/06/24 13:04 Interval history: 68yo female with MS, RAJINDER noncompliant with treatment, frequent UTIs and kidney stones with recent ESWL and stent placement here for weakness and fevers.?? Slept okay. No CP, abd pain or back pain. No n/v. Exam Narrative: AF 97.4 120/52 67 16 95% ra Gen - NARD Chest - CTA bilaterally, nml RR CV - RRR S1/S2 Abd - Soft, obese, NT Ext - nonpitting edema in the LE Psych - Nml mood and affect Skin - Warm and dry Objective Data Vital Signs Vital Signs: Vital Signs - 24 hr 04/05/24 14:00 04/05/24 20:00 04/05/24 21:56 Temperature 98.3 F 97.0 F L Pulse Rate 75 75 72 Respiratory Rate 14 14 20 Blood Pressure 111/51 L 103/79 Pulse Oximetry 98 98 100 Oxygen Delivery Room Air Fraction of Inspired Oxygen 21 04/06/24 06:00 04/06/24 07:49 Temperature 97.4 F L Pulse Rate 67 Respiratory Rate 16 Blood Pressure 120/52 L Pulse Oximetry 95 Oxygen Delivery Room Air Fraction of Inspired Oxygen Intake/Output Intake/Output: Intake & Output 04/03/24 04/04/24 04/05/24 04/06/24 23:59 23:59 23:59 23:59 Intake Total 960 2270 2740 840 Output Total 600 1800 2700 800 Balance 360 470 40 40 Meds/Results Medications: Active Medications Generic Name Dose Route Start Last Admin Trade Name Freq PRN Reason Stop Dose Admin Acetaminophen 650 mg 04/06/24 07:28 Acetaminophen 325 Mg Tablet PO Q6H PRN Mild Pain (1-3) or Fever Aripiprazole 10 mg 04/03/24 21:00 04/05/24 20:50 Aripiprazole 10 Mg Tablet PO 10 mg HS SUZY Administration Aspirin 81 mg 04/03/24 10:10 04/06/24 09:25 Aspirin 81 Mg Enteric Tablet PO 81 mg DAILY SUZY Administration Baclofen 10 mg 04/03/24 13:00 04/06/24 12:34 Baclofen 10 Mg Tablet PO 10 mg QID SUZY Administration Calcium Carbonate 1,000 m
[2024-04-06 14:21] VITALS: BP 126/50; PULSE 75; RESP 16; TEMP 36.4; O2SAT 95
[2024-04-06] MEDS: cefTRIAXone 2 GM/NS 100 ML 2 GM/100 ML BAG IVPB (17:08)
[2024-04-06 20:00] VITALS: PULSE 75; RESP 16; O2SAT 95
[2024-04-06] MEDS: ARIPiprazole 10 MG TABLET PO (20:40)
[2024-04-06] MEDS: CITALOPRAM HYDROBROMIDE 20 MG TABLET 40 MG PO (20:40)
[2024-04-06] MEDS: GABAPENTIN 300 MG CAPSULE 600 MG PO (20:41)
[2024-04-06 21:39] VITALS: BP 123/51; PULSE 75; RESP 18; TEMP 36.4; O2SAT 96
[2024-04-07] MEDS: LEVOTHYROXINE SODIUM 100 MCG TABLET PO (05:50)
[2024-04-07 06:00] VITALS: BP 121/57; PULSE 70; RESP 16; TEMP 36.2; O2SAT 94
[2024-04-07] MEDS: BACLOFEN 10 MG TABLET PO ×4 (09:11→20:49)
[2024-04-07] MEDS: ROSUVASTATIN 10 MG TABLET PO (09:11)
[2024-04-07] MEDS: CHOLECALCIFEROL 1,000 UNITS TABLET 1000 UNITS PO ×3 (09:11→17:10)
[2024-04-07] MEDS: MULTIVITAMINS THERAPEUTIC TAB (*BKC) 1 TABLET PO (09:11)
[2024-04-07] MEDS: ASPIRIN 81 MG ENTERIC TABLET PO (09:11)
[2024-04-07] MEDS: CALCIUM/VITAMIN D 500 MG/5 MCG (200 I.U.) TABLET 1000 MG PO (09:12)
[2024-04-07] MEDS: PANTOPRAZOLE 40 MG TABLET PO (09:12)
[2024-04-07] MEDS: IPRATROPIUM NASAL SPRAY 0.03% 15 ML BOTTLE 2 SPRAY NASAL (09:12)
[2024-04-07] MEDS: OMEGA 3 POLYUNSAT FATTY ACIDS 1 GM CAP 3 GM PO (09:12)
--- NOTE | 2024-04-07 11:04 | PM.IMPN ---
Progress Note: A&P Assessment and Plan (1) Sepsis: Code(s): A41.9 - Sepsis, unspecified organism Status: Acute Assessment and Plan: Patient presents to an outside emergency room with weakness found to have sepsis noted by her tachycardia and fever. Source is urinary with UTI and right-sided pyelonephritis. Rocephin started on the evening of 5/7 OSH BCx NGTD. OSH UCx growinig >100K colonies of EColi and proteus that are both sensitive to Rocephin UCx here growing 10-49K colonies of coag negative staph felt to be a contaminant Clinically improved. Normal WBC Continue Rocephin. Placement being arranged. (2) Acute pyelonephritis: Code(s): N10 - Acute pyelonephritis Status: Acute Assessment and Plan: As above. Continue antibiotics. (3) S/P ureteral stent placement: Code(s): Z96.0 - Presence of urogenital implants Status: Acute Assessment and Plan: Patient was having frequent UTIs. Urine culture from 03/21/2024 was negative. KUB on 03/29/2024 showed a 2 cm right renal pelvic stone. She underwent ESWL and right ureteral stent placement on 03/29/24 which she tolerated well. Urology following (4) Thrombocytopenia: Code(s): D69.6 - Thrombocytopenia, unspecified Status: Acute Assessment and Plan: Platelet count was mildly low at the outside hospital. Imaging did show splenomegaly. Platelet count has dropped to 130 K on repeat labs but stable. Suspect this is probably related to splenic sequestration made worse by her sepsis vs chronic related to her medciations. Continue to monitor platelet count periodically. (5) Multiple sclerosis: Code(s): G35 - Multiple sclerosis Status: Acute Assessment and Plan: Patient with MS that is longstanding. She is on baclofen chronically and takes Ocrevus (ocrelizumab) IV every 6 months with last dose in February. Baclofen resumed Continue PT and OT. Placement being arranged Plan DVT prophylaxis -SCDs Code status -full Disp - she is agreeable for SNF placement. Care coordination made aware. Subjective Date/time seen: 04/07/24 11:04 Interval history: 68yo female with MS, RAJINDER noncompliant with treatment, frequent UTIs and kidney stones with recent ESWL and stent placement here for weakness and fevers.?? Legs were 'jumpy' last night. She normally takes an extra gabapentin for this at home. No hx of restless leg syndrome. No SOB or cough. Having lower back pain but this is more chronic for her Exam Narrative: AF 97.1 121/57 70 16 94% ra Gen - NARD Chest - CTA bilaterally, nml RR CV - RRR S1/S2 Abd - Soft, obese, NT Ext - nonpitting edema in the LE Psych - Nml mood and flat affect Skin - Warm and dry Objective Data Vital Signs Vital Signs: Vital Signs - 24 hr 04/06/24 14:21 04/06/24 20:00 04/06/24 21:39 Temperature 97.5 F L 97.5 F L Pulse Rate 75 75 75 Respiratory Rate 16 16 18 Blood Pressure 126/50 L 123/51 L Pulse Oximetry 95 95 96 Oxygen Delivery Room Air Fraction of Inspired Oxygen 21 04/07/24 06:00 04/07/24 08:40 Temperature 97.1 F L Pulse Rate 70 Respiratory Rate 16 Blood Pressure 121/57 L Pulse Oximetry 94 Oxygen Delivery Room Air Fraction of Inspired Oxygen Intake/Output Intake/Output: Intake & Output 04/04/24 04/05/24 04/06/24 04/07/24 23:59 23:59 23:59 23:59 Intake Total 2270 2740 1740 600 Output Total 1800 2700 2600 1800 Balance 470 40 -860 -1200 Meds/Results Medications: Active Medications Generic Name Dose Route Start Last Admin Trade Name Freq PRN Reason Stop Dose Admin Acetaminophen 650 mg 04/06/24 07:28 Acetaminophen 325 Mg Tablet PO Q6H PRN Mild Pain (1-3) or Fever Aripiprazole 10 mg 04/03/24 21:00 04/06/24 20:40 Aripiprazole 10 Mg Tablet PO 10 mg HS SUZY Administration Aspirin 81 mg 04/03/24 10:10 04/07/24 09:11 Aspirin 81 Mg Enteric Tablet PO 81 mg
[2024-04-07 14:52] VITALS: BP 121/50; PULSE 81; RESP 18; TEMP 36.2; O2SAT 99
[2024-04-07] MEDS: ACETAMINOPHEN 325 MG TABLET 650 MG PO (17:10)
[2024-04-07] MEDS: cefTRIAXone 2 GM/NS 100 ML 2 GM/100 ML BAG IVPB (17:11)
[2024-04-07 20:00] VITALS: PULSE 81; RESP 18; O2SAT 99
[2024-04-07] MEDS: GABAPENTIN 300 MG CAPSULE 600 MG PO (20:48)
[2024-04-07] MEDS: CITALOPRAM HYDROBROMIDE 20 MG TABLET 40 MG PO (20:49)
[2024-04-07] MEDS: ARIPiprazole 10 MG TABLET PO (20:49)
[2024-04-07 23:08] VITALS: BP 118/48; PULSE 71; RESP 18; TEMP 36; O2SAT 96
[2024-04-08] MEDS: LEVOTHYROXINE SODIUM 100 MCG TABLET PO (05:32)
[2024-04-08 05:44] LABS: Hemoglobin 12.1 g/dL (12.0-15.0); Mean Corpuscular HGB Conc 33.6 g/dl (32-36); Mean Corpuscular Hemoglobin 28.3 pg (26-34); Mean Corpuscular Volume 84.1 fl (80-100); Mean Platelet Volume 9.4 fl (7.4-10.4); Platelet Count Result 202 k/mm3 (150-375); Red Blood Count 4.28 M/mm3 (4.2-5.4); Red Cell Distribution Width 13.5 % (11.5-14.5); White Blood Count 6.8 K/mm3 (4.5-10.0)
[2024-04-08 05:54] LABS: Anion Gap 6 mmol/L (4-12); Blood Urea Nitrogen 16 mg/dL (7-17); Calcium 9.3 mg/dL (8.4-10.2); Carbon Dioxide 29 mmol/L (22-30); Chloride 105 mmol/L (98-107); Estimated CRCL calculation 71 ml/min; Estimated Glomerular Filt Rate > 60; Glucose 115 mg/dL (65-110); Potassium 3.8 mmol/L (3.4-5.0); Sodium 140 mmol/L (137-145)
[2024-04-08 06:00] VITALS: BP 114/44; PULSE 65; RESP 18; TEMP 36.1; O2SAT 97
[2024-04-08] MEDS: CHOLECALCIFEROL 1,000 UNITS TABLET 1000 UNITS PO ×3 (08:56→17:21)
[2024-04-08] MEDS: ASPIRIN 81 MG ENTERIC TABLET PO (08:56)
[2024-04-08] MEDS: BACLOFEN 10 MG TABLET PO ×4 (08:56→21:08)
[2024-04-08] MEDS: ROSUVASTATIN 10 MG TABLET PO (08:56)
[2024-04-08] MEDS: OMEGA 3 POLYUNSAT FATTY ACIDS 1 GM CAP 3 GM PO (08:56)
[2024-04-08] MEDS: MULTIVITAMINS THERAPEUTIC TAB (*BKC) 1 TABLET PO (08:56)
[2024-04-08] MEDS: PANTOPRAZOLE 40 MG TABLET PO (08:56)
[2024-04-08] MEDS: IPRATROPIUM NASAL SPRAY 0.03% 15 ML BOTTLE 2 SPRAY NASAL ×2 (08:57→17:21)
[2024-04-08] MEDS: CALCIUM/VITAMIN D 500 MG/5 MCG (200 I.U.) TABLET 1000 MG PO (08:57)
[2024-04-08 14:00] VITALS: BP 104/47; PULSE 86; RESP 16; TEMP 37.2; O2SAT 97
--- NOTE | 2024-04-08 16:31 | PM.IMPN ---
Progress Note: A&P Assessment and Plan (1) Sepsis: Code(s): A41.9 - Sepsis, unspecified organism Status: Acute Assessment and Plan: Patient presents to an outside emergency room with weakness found to have sepsis noted by her tachycardia and fever. Source is urinary with UTI and right-sided pyelonephritis. Rocephin started on the evening of 5/7 OSH BCx NGTD. OSH UCx growinig >100K colonies of EColi and proteus that are both sensitive to Rocephin UCx here growing 10-49K colonies of coag negative staph felt to be a contaminant Clinically improved. Normal WBC Change to oral abx. Placement being arranged. (2) Acute pyelonephritis: Code(s): N10 - Acute pyelonephritis Status: Acute Assessment and Plan: As above. Continue antibiotics. (3) S/P ureteral stent placement: Code(s): Z96.0 - Presence of urogenital implants Status: Acute Assessment and Plan: Patient was having frequent UTIs. Urine culture from 03/21/2024 was negative. KUB on 03/29/2024 showed a 2 cm right renal pelvic stone. She underwent ESWL and right ureteral stent placement on 03/29/24 which she tolerated well. Urology following (4) Thrombocytopenia: Code(s): D69.6 - Thrombocytopenia, unspecified Status: Acute Assessment and Plan: Platelet count was mildly low at the outside hospital. Imaging did show splenomegaly. Platelet count dropped to 130 K but normal now Suspect this is probably related to splenic sequestration made worse by her sepsis Continue to monitor platelet count periodically. (5) Multiple sclerosis: Code(s): G35 - Multiple sclerosis Status: Acute Assessment and Plan: Patient with MS that is longstanding. She is on baclofen chronically and takes Ocrevus (ocrelizumab) IV every 6 months with last dose in February. Baclofen resumed Continue PT and OT. Placement being arranged Plan DVT prophylaxis - Lovenox Code status -full Disp - she is agreeable for SNF placement. Care coordination made aware. Subjective Date/time seen: 04/08/24 16:31 Interval history: 68yo female with MS, RAJINDER noncompliant with treatment, frequent UTIs and kidney stones with recent ESWL and stent placement here for weakness and fevers.?? Slept well. No CP or SOB. No back pain Exam Narrative: AF 98.9 104/47 86 16 97% ra Gen - NARD Chest - CTA bilaterally, nml RR CV - RRR S1/S2 Abd - Soft, obese, NT Ext - nonpitting edema in the LE Psych - Nml mood and flat affect Skin - Warm and dry Objective Data Vital Signs Vital Signs: Vital Signs - 24 hr 04/07/24 20:00 04/07/24 23:08 04/08/24 06:00 Temperature 96.8 F L 97.0 F L Pulse Rate 81 71 65 Respiratory Rate 18 18 18 Blood Pressure 118/48 L 114/44 L Pulse Oximetry 99 96 97 Oxygen Delivery Room Air Fraction of Inspired Oxygen 21 04/08/24 08:00 04/08/24 14:00 Temperature 98.9 F Pulse Rate 86 Respiratory Rate 16 Blood Pressure 104/47 L Pulse Oximetry 97 Oxygen Delivery Room Air Fraction of Inspired Oxygen Intake/Output Intake/Output: Intake & Output 04/05/24 04/06/24 04/07/24 04/08/24 23:59 23:59 23:59 23:59 Intake Total 2740 1740 1670 980 Output Total 2700 2600 2900 800 Balance 40 -860 -1230 180 Meds/Results Medications: Active Medications Generic Name Dose Route Start Last Admin Trade Name Freq PRN Reason Stop Dose Admin Acetaminophen 650 mg 04/06/24 07:28 04/07/24 17:10 Acetaminophen 325 Mg Tablet PO 650 mg Q6H PRN Administration Mild Pain (1-3) or Fever Aripiprazole 10 mg 04/03/24 21:00 04/07/24 20:49 Aripiprazole 10 Mg Tablet PO 10 mg HS SUZY Administration Aspirin 81 mg 04/03/24 10:10 04/08/24 08:56 Aspirin 81 Mg Enteric Tablet PO 81 mg DAILY SUZY Administration Baclofen 10 mg 04/03/24 13:00 04/08/24 12:51 Baclofen 10 Mg Tablet PO 10 mg QID SUZY Administration Calcium Carbonate 1,000 mg
[2024-04-08] MEDS: ENOXAPARIN 40 MG/0.4 ML SYRINGE SUB-Q (17:21)
[2024-04-08 20:00] VITALS: PULSE 86; RESP 16; O2SAT 97
[2024-04-08] MEDS: ARIPiprazole 10 MG TABLET PO (21:08)
[2024-04-08] MEDS: CEFDINIR 300 MG CAPSULE PO (21:08)
[2024-04-08] MEDS: CITALOPRAM HYDROBROMIDE 20 MG TABLET 40 MG PO (21:08)
[2024-04-08] MEDS: GABAPENTIN 300 MG CAPSULE 600 MG PO (21:08)
[2024-04-08 22:00] VITALS: BP 132/55; PULSE 71; RESP 18; TEMP 36.3; O2SAT 96
[2024-04-09 06:00] VITALS: BP 126/50; PULSE 72; RESP 16; TEMP 36.1; O2SAT 94
[2024-04-09] MEDS: LEVOTHYROXINE SODIUM 100 MCG TABLET PO (06:01)
[2024-04-09] MEDS: BACLOFEN 10 MG TABLET PO ×4 (08:46→20:37)
[2024-04-09] MEDS: CALCIUM/VITAMIN D 500 MG/5 MCG (200 I.U.) TABLET 1000 MG PO (08:46)
[2024-04-09] MEDS: IPRATROPIUM NASAL SPRAY 0.03% 15 ML BOTTLE 2 SPRAY NASAL (08:46)
[2024-04-09] MEDS: ROSUVASTATIN 10 MG TABLET PO (08:46)
[2024-04-09] MEDS: MULTIVITAMINS THERAPEUTIC TAB (*BKC) 1 TABLET PO (08:46)
[2024-04-09] MEDS: ASPIRIN 81 MG ENTERIC TABLET PO (08:46)
[2024-04-09] MEDS: CHOLECALCIFEROL 1,000 UNITS TABLET 1000 UNITS PO ×3 (08:46→17:37)
[2024-04-09] MEDS: PANTOPRAZOLE 40 MG TABLET PO (08:46)
[2024-04-09] MEDS: OMEGA 3 POLYUNSAT FATTY ACIDS 1 GM CAP 3 GM PO (08:46)
[2024-04-09] MEDS: CEFDINIR 300 MG CAPSULE PO ×2 (08:46→20:36)
[2024-04-09] MEDS: ENOXAPARIN 40 MG/0.4 ML SYRINGE SUB-Q (08:49)
[2024-04-09 13:45] VITALS: BP 141/55; PULSE 72; RESP 16; TEMP 36.5; O2SAT 96
--- NOTE | 2024-04-09 14:24 | PM.IMPN ---
Progress Note: A&P Assessment and Plan (1) Sepsis: Code(s): A41.9 - Sepsis, unspecified organism Status: Acute Assessment and Plan: Patient presents to an outside emergency room with weakness found to have sepsis noted by her tachycardia and fever. Source is urinary with UTI and right-sided pyelonephritis. Rocephin started on the evening of 5/7 OSH BCx NGTD. OSH UCx growinig >100K colonies of EColi and proteus that are both sensitive to Rocephin UCx here growing 10-49K colonies of coag negative staph felt to be a contaminant Clinically improved. Normal WBC Change to oral abx. Placement being arranged. awaiting SNF placement (2) Acute pyelonephritis: Code(s): N10 - Acute pyelonephritis Status: Acute Assessment and Plan: As above. Continue antibiotics. (3) S/P ureteral stent placement: Code(s): Z96.0 - Presence of urogenital implants Status: Acute Assessment and Plan: Patient was having frequent UTIs. Urine culture from 03/21/2024 was negative. KUB on 03/29/2024 showed a 2 cm right renal pelvic stone. She underwent ESWL and right ureteral stent placement on 03/29/24 which she tolerated well. Urology following (4) Thrombocytopenia: Code(s): D69.6 - Thrombocytopenia, unspecified Status: Acute Assessment and Plan: Platelet count was mildly low at the outside hospital. Imaging did show splenomegaly. Platelet count dropped to 130 K but normal now Suspect this is probably related to splenic sequestration made worse by her sepsis Continue to monitor platelet count periodically. (5) Multiple sclerosis: Code(s): G35 - Multiple sclerosis Status: Acute Assessment and Plan: Patient with MS that is longstanding. She is on baclofen chronically and takes Ocrevus (ocrelizumab) IV every 6 months with last dose in February. Baclofen resumed Continue PT and OT. Placement being arranged Subjective Date/time seen: 04/09/24 14:24 Interval history: 68yo female with MS, RAJINDER noncompliant with treatment, frequent UTIs and kidney stones with recent ESWL and stent placement here for weakness and fevers.?? Pt doing better no fever today ambulating in the room with a walker Review of Systems Review of Systems: No acute issues Exam Narrative: Generally: chronically ill lady weak on walking Chest - CTA bilaterally, nml RR CV - RRR S1/S2 Abd - Soft, obese, NT Ext - nonpitting edema in the LE Psych - Nml mood and flat affect Skin - Warm and dry Objective Data Vital Signs Vital Signs: Vital Signs - 24 hr 04/08/24 20:00 04/08/24 22:00 04/09/24 06:00 Temperature 36.3 C L 36.1 C L Pulse Rate 86 71 72 Respiratory Rate 16 18 16 Blood Pressure 132/55 L 126/50 L Pulse Oximetry 97 96 94 Oxygen Delivery Room Air Fraction of Inspired Oxygen 21 04/09/24 08:00 04/09/24 13:45 Temperature 36.5 C Pulse Rate 72 Respiratory Rate 16 Blood Pressure 141/55 H Pulse Oximetry 96 Oxygen Delivery Room Air Fraction of Inspired Oxygen Intake/Output Intake/Output: Intake & Output 04/06/24 04/07/24 04/08/24 04/09/24 23:59 23:59 23:59 23:59 Intake Total 1740 1670 2220 740 Output Total 2600 2900 1700 900 Balance -860 -1230 520 -160 Meds/Results Medications: Active Medications Generic Name Dose Route Start Last Admin Trade Name Freq PRN Reason Stop Dose Admin Acetaminophen 650 mg 04/06/24 07:28 04/07/24 17:10 Acetaminophen 325 Mg Tablet PO 650 mg Q6H PRN Administration Mild Pain (1-3) or Fever Aripiprazole 10 mg 04/03/24 21:00 04/08/24 21:08 Aripiprazole 10 Mg Tablet PO 10 mg HS SUZY Administration Aspirin 81 mg 04/03/24 10:10 04/09/24 08:46 Aspirin 81 Mg Enteric Tablet PO 81 mg DAILY SUZY Administration Baclofen 10 mg 04/03/24 13:00 04/09/24 12:39 Baclofen 10 Mg Tablet PO 10 mg QID SUZY Administration Calcium Carbonate 1,000 mg 05
[2024-04-09 19:42] VITALS: BP 118/48; PULSE 78; RESP 18; TEMP 36.1; O2SAT 98
[2024-04-09] MEDS: ARIPiprazole 10 MG TABLET PO (20:37)
[2024-04-09] MEDS: CITALOPRAM HYDROBROMIDE 20 MG TABLET 40 MG PO (20:44)
[2024-04-09] MEDS: GABAPENTIN 300 MG CAPSULE 600 MG PO (20:44)
[2024-04-10 05:03] VITALS: BP 97/49; PULSE 65; RESP 18; TEMP 36.4; O2SAT 98
[2024-04-10] MEDS: LEVOTHYROXINE SODIUM 100 MCG TABLET PO (05:31)
[2024-04-10 05:32] LABS: Hematocrit 37.9 % (37.0-47.0); Hemoglobin 12.5 g/dL (12.0-15.0); Mean Corpuscular Hemoglobin 28.2 pg (26-34); Mean Corpuscular Volume 85.4 fl (80-100); Mean Platelet Volume 9.2 fl (7.4-10.4); Platelet Count Result 204 k/mm3 (150-375); Red Blood Count 4.44 M/mm3 (4.2-5.4); Red Cell Distribution Width 13.2 % (11.5-14.5); White Blood Count 7.4 K/mm3 (4.5-10.0)
[2024-04-10 05:54] LABS: Anion Gap 8 mmol/L (4-12); Blood Urea Nitrogen 14 mg/dL (7-17); Calcium 8.9 mg/dL (8.4-10.2); Carbon Dioxide 29 mmol/L (22-30); Chloride 107 mmol/L (98-107); Estimated CRCL calculation 71 ml/min; Estimated Glomerular Filt Rate > 60; Glucose 107 mg/dL (65-110); Potassium 4.1 mmol/L (3.4-5.0); Sodium 144 mmol/L (137-145)
[2024-04-10] MEDS: IPRATROPIUM NASAL SPRAY 0.03% 15 ML BOTTLE 2 SPRAY NASAL (08:52)
[2024-04-10] MEDS: ASPIRIN 81 MG ENTERIC TABLET PO (08:53)
[2024-04-10] MEDS: ROSUVASTATIN 10 MG TABLET PO (08:53)
[2024-04-10] MEDS: CEFDINIR 300 MG CAPSULE PO (08:53)
[2024-04-10] MEDS: OMEGA 3 POLYUNSAT FATTY ACIDS 1 GM CAP 3 GM PO (08:53)
[2024-04-10] MEDS: MULTIVITAMINS THERAPEUTIC TAB (*BKC) 1 TABLET PO (08:53)
[2024-04-10] MEDS: CALCIUM/VITAMIN D 500 MG/5 MCG (200 I.U.) TABLET 1000 MG PO (08:53)
[2024-04-10] MEDS: PANTOPRAZOLE 40 MG TABLET PO (08:53)
[2024-04-10] MEDS: BACLOFEN 10 MG TABLET PO ×2 (08:53→12:04)
[2024-04-10] MEDS: ENOXAPARIN 40 MG/0.4 ML SYRINGE SUB-Q (08:54)
[2024-04-10] MEDS: CHOLECALCIFEROL 1,000 UNITS TABLET 1000 UNITS PO ×2 (08:54→12:04)
--- NOTE | 2024-04-10 09:17 | PM.DS ---
DS: Admitting Diagnosis Discharge Date 04/10/2024 Admitting Diagnosis Weakness with Fever DS: Discharge Diagnosis Discharge Diagnosis (1) Sepsis: Code(s): A41.9 - Sepsis, unspecified organism Status: Acute Assessment and Plan: Patient presents to an outside emergency room with weakness found to have sepsis noted by her tachycardia and fever. Source is urinary with UTI and right-sided pyelonephritis. Rocephin started on the evening of 04/02 OSH BCx NGTD. OSH UCx growinig >100K colonies of EColi and proteus that are both sensitive to Rocephin UCx here growing 10-49K colonies of coag negative staph felt to be a contaminant Clinically improved. Normal WBC Change to oral abx. Placement being arranged. ok to [place] today to [facility] (2) Acute pyelonephritis: Code(s): N10 - Acute pyelonephritis Status: Acute Assessment and Plan: As above. Continue antibiotics. oral for 7 more days. (3) S/P ureteral stent placement: Code(s): Z96.0 - Presence of urogenital implants Status: Acute Assessment and Plan: Patient was having frequent UTIs. Urine culture from 03/21/2024 was negative. KUB on 03/29/2024 showed a 2 cm right renal pelvic stone. She underwent ESWL and right ureteral stent placement on 03/29/24 which she tolerated well. Urology following (4) Thrombocytopenia: Code(s): D69.6 - Thrombocytopenia, unspecified Status: Acute Assessment and Plan: Platelet count was mildly low at the outside hospital. Imaging did show splenomegaly. Platelet count dropped to 130 K but normal now Suspect this is probably related to splenic sequestration made worse by her sepsis Continue to monitor platelet count periodically. (5) Multiple sclerosis: Code(s): G35 - Multiple sclerosis Status: Acute Assessment and Plan: Patient with MS that is longstanding. She is on baclofen chronically and takes Ocrevus (ocrelizumab) IV every 6 months with last dose in February. Baclofen resumed Continue PT and OT. Placement is arranged DS: Summary Hospital Course Hospital Course: 68yo female with MS, RAJINDER noncompliant with treatment, frequent UTIs and kidney stones with recent ESWL and stent placement here for weakness and fevers.? Patient was having frequent UTIs.? During evaluation, she was found to have right kidney stone.? She was evaluated by Urology and underwent ESWL with right ureteral stent placement on 03/29/2024.? She tolerated the procedure well.? She has not passed any stones or gravel with voiding that she is aware of since the procedure.? She noted hematuria after the procedure but that resolved.? She was feeling well until 04/01/2024 when she felt weak.? She had pink hematuria noted.? She is developing dysuria.? Over the next 24 hours, she was having decreasing oral intake with decreased urine output.? No abdominal pain but was having right-sided lower back pain.? No diarrhea but does have chronic constipation.? No chest pain, palpitations, shortness of breath or cough.? No melena or hematochezia.? She was having headache and some mild blurry vision and comes and goes.? She was feeling feverish.? She has MS for the past 13 years.? She normally walks with a walker and braces.? Patient was able to walk to her recliner but was unable to get out of the recliner due to weakness so EMS was contacted.? Patient was brought to an outside emergency room.? She was febrile with a temperature 102.3?.? She was tachycardic.? Her white count was normal. Platelet count 149K.? BUN and creatinine were normal.? Chest x-ray was clear.? UA was consistent with UTI.? EKG showed sinus tachycardia (124) and nonspecific ST-T wave changes.? CT of the abdomen pelvis showed a right-sided ureteral stent in place with mild caliectasis on the right.? There is mild-moderate right perinephric fat stranding noted as well.? She did have lymphadenopathy but this is chronic and stable.? Also not
--- NOTE | 2024-04-10 09:20 | PCNWS ---
Weekly nutritional screen. Patient is tolerating current diet with adequate intake, 75-100. No weight loss reported. No nutritional needs at this time.
[2024-04-10 12:49] LABS: SARS-CoV-2 RNA PCR Negative (Negative)
== END 2024-04-10 15:05 | DRG 872 ==
LOC: ANHED 04:46 → ANH3MED 05:01
PROVIDERS: Internal Medicine; Admitting Provider Internal Medicine; Emergency Provider Emergency Medicine; Visit Provider Family Medicine
DX: A41.9 Sepsis, unspecified organism (principal); N10 Acute pyelonephritis; N20.0 Calculus of kidney; G35 Multiple sclerosis; E66.9 Obesity, unspecified; Z68.31 Body mass index [BMI] 31.0-31.9, adult; G47.33 Obstructive sleep apnea (adult) (pediatric); K76.0 Fatty (change of) liver, not elsewhere classified; K21.9 Gastro-esophageal reflux disease without esophagitis; K44.9 Diaphragmatic hernia without obstruction or gangrene; D69.6 Thrombocytopenia, unspecified; M19.90 Unspecified osteoarthritis, unspecified site; Z87.891 Personal history of nicotine dependence; Z91.199 Patient's noncompliance with other medical treatment and regimen due to unspecified reason; Z90.710 Acquired absence of both cervix and uterus; Z11.52 Encounter for screening for COVID-19
CPT/HCPCS: 36415; 74018; 80048; 80053; 81001; 83605; 83735; 85025; 85027; 87077; 87086; 87088; 87635; 93005; 93970; 97110; 97116; 97161; 97166; 97530; 97535; 99285; A9270; J0696; J1650

== ENCOUNTER 2024-05-03 09:28 | Outpatient (CLI) | payer MEDICARE, OTHER, SELFPAY ==
--- NOTE | ~2024-05-03 | CT_ITS ---
Non-contrast CT scan of the Abdomen and Pelvis Clinical indication: Right renal stone Technique: 2.5 mm axial scans were obtained through the abdomen and pelvis without intravenous or or al contrast. Dose reduction technique was used on this scan by utilizing automated exposure control a nd iterative reconstruction technique. The dose-length product (DLP) was 245.22 mGy-cm. Findings: Images through the lung bases reveal no abnormalities. Nonobstructing right renal stones measuring up to 5 mm. Right ureteral stent in place. No right urete ral stone or right hydronephrosis. No left renal or left ureteral stone. No left hydronephrosis. The liver, spleen, pancreas, gallbladder, and adrenals appear normal. 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 There are atherosclerotic calcifications of the aor ta. There is no evidence of bowel obstruction. Images through the pelvis were performed. There is no evidence of ascites or lymphadenopathy. Urinary bladder unremarkable. No pelvic mass seen. No ascites. Impression: Nonobstructing right renal stones, as above. Right ureteral stent in place. No ureteral stones or hyd ronephrosis. Reviewed, dictated and finalized at location . Impression: Nonobstructing right renal stones, as above. Right ureteral stent in place. No ureteral stones or hydronephrosis.
== END 2024-05-03 09:29 | disposition home or self-care (01) ==
PROVIDERS: Visit Provider Urology
DX: N20.0 Calculus of kidney (principal)
CPT/HCPCS: 74176